=== PATIENT | male | born 1995 | race Hispanic/Latino ===

== ENCOUNTER 2017-11-08 16:59 | Emergency (ER) | payer OTHER ==
[2017-11-08 17:15] VITALS: TEMP 98.7
--- NOTE | 2017-11-08 17:44 | C.PDOC ---
History Of Present Illness 22 year old, with history of anxiety, present to ED for evaluation of panic attack that started 3 hours ago. He states he never had to take medications for his anxiety. Patient states he normally tries breathing exercises and relaxing but it is not helping this time. He admits to feeling stressed due to intense training program at his new job, and new to this area moved from [place]. He notes feeling better upon arrival. Otherwise, denies chest pain, shortness of breath, or any active physical complaints at this time. Time Seen by Provider: 11/08/17 17:31 Chief Complaint (Nursing): Anxiety History Per: Patient History/Exam Limitations: no limitations Onset/Duration Of Symptoms: Days Current Symptoms Are (Timing): Still Present Recent travel outside of the [place]: No Additional History Per: Patient Past Medical History Reviewed: Historical Data, Nursing Documentation, Vital Signs Vital Signs: Last Vital Signs Temp 98.7 F 11/08/17 17:54 Pulse 86 11/08/17 17:54 Resp 18 11/08/17 17:54 BP 138/86 11/08/17 17:54 Pulse Ox 97 11/08/17 18:12 - Medical History PMH: Anxiety Family History: States: Unknown Family Hx - Social History Hx Alcohol Use: Yes Hx Substance Use: No - Immunization History Hx Tetanus Toxoid Vaccination: Yes Hx Influenza Vaccination: No Hx Pneumococcal Vaccination: No Review Of Systems Constitutional: Negative for: Fever, Chills Cardiovascular: Negative for: Chest Pain, Palpitations Respiratory: Negative for: Cough, Shortness of Breath Neurological: Negative for: Headache, Dizziness Psych: Positive for: Anxiety. Negative for: Suicidal ideation Physical Exam - Physical Exam Appears: Non-toxic, No Acute Distress, Other (mildly anxious) Skin: Normal Color, Warm, Dry Head: Atraumatic, Normacephalic Eye(s): bilateral: Normal Inspection Oral Mucosa: Moist Neck: Normal ROM, Supple Chest: Symmetrical Cardiovascular: Rhythm Regular, No Murmur Respiratory: Normal Breath Sounds, No Rales, No Rhonchi, No Wheezing Gastrointestinal/Abdominal: Soft, No Tenderness Extremity: Normal ROM, No Deformity Neurological/Psych: Oriented x3, Normal Speech ED Course And Treatment O2 Sat by Pulse Oximetry: 97 (RA) Pulse Ox Interpretation: Normal Medical Decision Making Medical Decision Making: Impression: 22 year old male with panic attack. Medications and crisis evaluation offered but patient refused. Patient has no SI/HI. Stable for discharge. Given information for outpatient [facility] and hotline. Disposition Counseled Patient/Family Regarding: Diagnosis, Need For Followup - Disposition Referrals: [facility] [Outside] Disposition: HOME/ ROUTINE Disposition Time: 17:43 Condition: STABLE Additional Instructions: Please [facility] with [facility] ([facility] at [address] [place] [address]. Please call [phone] or ext [phone] to arrange appointment. If you need to speak to someone immediately call Crisis Hotline [phone] Instructions: Anxiety, Adult (DC) - POA Present On Arrival: None - Clinical Impression Clinical Impression: Anxiety - PA / VOCATIONAL NURSE LVN / Resident Statement MD/DO has reviewed & agrees with the documentation as recorded. - Scribe Statement The provider has reviewed the documentation as recorded by the Scribe KP All medical record entries made by the Scribe were at my direction and personally dictated by me. I have reviewed the chart and agree that the record accurately reflects my personal performance of the history, physical exam, medical decision making, and the department course for this patient. I have also personally directed, reviewed, and agree with the discharge instructions and disposition.
[2017-11-08 17:59] VITALS: BP 138/86; PULSE 86; RESP 18
[2017-11-08 18:09] VITALS: O2SAT 97
--- NOTE | 2017-11-09 23:59 | CARD ---
APPROVED REPORT Date of service: 11/08/2017 EKG Measurement Heart [id number] <Conclusion> Sinus tachycardia Otherwise normal ECG
== END 2017-11-08 17:55 | disposition home or self-care (01) ==
LOC: C.ER 16:59
DX: F41.9 Anxiety disorder, unspecified (principal)